=== PATIENT | female | born 1980 | race Caucasian/White ===

== ENCOUNTER 2017-05-16 15:39 | Observation (INO) | payer BC ==
[2017-05-16] MEDS ORDERED: Acetaminophen 325 MG Tab PO PRN (16:52)
[2017-05-16] MEDS ORDERED: Polyethylene Glycol 3350 Powder 17 GM Packet PO PRN (16:52)
[2017-05-16] MEDS ORDERED: Ondansetron 4 MG Tab.DIS PO PRN (16:52)
--- NOTE | 2017-05-16 17:14 | PCM.HP ---
H&P History of Present Illness - General Date of Service: 05/16/17 Admit Problem/Dx: Admission Diagnosis/Problem Admission Diagnosis/Problem Abdominal pain Source of Information: Patient, Family, Old Records History Limitations: Reports: No Limitations - History of Present Illness Initial Comments - Free Text/Narative: This patient is a 36-year-old female who presents to [facility] this afternoon with a two-week history of abdominal pain. The patient tells me she hasn't quite felt herself since December when she was treated with antibiotic therapy for pneumonia. She thinks she was treated with azithromycin and ciprofloxacin. Since about 2 weeks ago, she has had nausea and abdominal discomfort, cramping and just hasn't felt herself. She's not been having regular bowel movements and has been constipated. She's had no diarrhea. She has had no appetite. She finally had an episode of vomiting last night, no blood in it, it was just bile, and her said she needed to go in today. She did just get her menses today. She tells me she's had a lot of trouble with her bowels in the past because of all of a long-standing history of using narcotics for pain management. She weaned herself off the narcotic pain pill sometime in the last 24 months and has been off them for at least a year. She didn't like the side effects. She uses marijuana intermittently for pain management. Past medical history significant for: History of thyroid biopsy of a thyroid mass in the past which was negative. Possible hypertension which is untreated Possible prediabetes or diabetes which is untreated Acid reflux Bipolar disorder Myofascial pain syndrome Endometriosis for which the patient has been advised to have her uterus removed because of intermittent abdominal pain with this History of tonsillectomy at the age of 31 and adenoids and ear tubes placed as a child. She also had a second set of tubes placed. Tubal ligation in 2002 Left shoulder scoping with clavicular partial removal. Allergies: Dill causes her to have hives and Abilify gives her rash. Current medications: #1 melatonin #2 Midol for pain and cramping #3 Tums for heartburn #4 The patient's med list from also includes seasonale oral contraceptive which the patient stopped about 3 months ago because it didn't sit through bleeding completely, Flomax which she doesn't take, and Topamax which she thinks was prescribed for pain management but she doesn't take. Family history: The patient's mother and sister both have lupus. She has 3 sisters and 1 brother. They'll mental illness. She thinks her father had a heart attack at some point but is estranged from him. Social history: The patient is a nonsmoker, nondrinker, , with 2 children. She stays at home. She uses marijuana for pain control but no other illegal drugs. - Related Data Allergies/Adverse Reactions: Allergies Allergy/AdvReac Type Severity Reaction Status Date / Time aripiprazole [From Abilify] Allergy Hives Verified 05/16/17 17:09 Home Medications: Home Meds Ibuprofen 200 mg PO Q4HR PRN 05/16/17 [History] Melatonin 10 mg PO DAILY 05/16/17 [History] Social & Family History - Tobacco Use Smoking Status *Q: Former Smoker Used Tobacco, but Quit: Yes Month Tobacco Last Used: 07/31/2007 Second Hand Smoke Exposure: No - Caffeine Use Caffeine Use: Reports: None - Recreational Drug Use Recreational Drug Use: Yes Drug Use in Last 12 Months: Yes Recreational Drug Type: Reports: Marijuana/Hashish Recreational Drug Use Frequency: Daily H&P Review of Systems - Review of Systems: Review Of Systems: See Below General: Reports: No Symptoms, Decreased Appetite HEENT: Reports: No Symptoms, Sore Throat Pulmonary: Reports: No Symptoms Cardiovascular: Reports: No Symptoms, Chest Pain (with deep inspiration on the Left upper abd/left lower chest and back) Gastrointestinal: Reports: Abdominal Pain, Anorexia, Constipation, Decreased Appetite, Vomiting Genitourinary: Reports: No Symptoms Musculoskeletal: Reports: Other (chronic body aches) Skin: Reports: No Symptoms Psychiatric: Reports: Other (Bipolar which she takes nothing for.) Neurological: Reports: No Symptoms Hematologic/Lymphatic: Reports: No Symptoms Immunologic: Reports: No Symptoms, Food Allergy, Environmental Allergy Exam - Exam Exam: See Below - Vital Signs Vital Signs: Last Vital Signs Temp 36.7 C 05/16/17 15:45 Pulse 84 05/16/17 15:45 Resp 18 05/16/17 15:45 BP 133/91 H 05/16/17 15:45 Pulse Ox 97 05/16/17 15:45 Weight: 70.931 kg - Exam General: Alert, Oriented, Cooperative (Speech is slightly pressured, somewhat tangential.) HEENT: PERRLA, Conjunctiva Clear, Mucosa Moist & [place], Posterior Pharynx Clear Neck: Supple, Trachea Midline Lungs: Clear to Auscultation, Normal Respiratory Effort Cardiovascular: Regular Rate, Regular Rhythm, Normal S1, Normal S2 GI/Abdominal Exam: Normal Bowel Sounds, Soft, No Distention (diffusely tender but mostly in the epigastrium, right and left upper quadrants, some in the suprapubic region.) Back Exam: Normal Inspection Extremities: Normal Inspection, No Pedal Edema Skin: Warm, Dry, Intact Neuro Extensive - Mental Status: Alert, Oriented x3 Psychiatric: Alert, Normal Affect, Normal Mood - Patient Data Lab Results Last 24 hrs: Laboratory Results - last 24 hr 05/16/17 Range/Units 16:00 Urine Color Yellow (YELLOW) Urine Appearance Clear (CLEAR) Urine pH 5.0 (5.0-6.5) Ur Specific [place] 1.010 (1.010-1.025) Urine Protein Negative (NEGATIVE) mg/dL Urine Glucose (UA) Normal (NEGATIVE) mg/dL Urine Ketones 15 H (NEGATIVE) mg/dL Urine Occult Blood Negative (NEGATIVE) Urine Nitrite Negative (NEGATIVE) Urine Bilirubin Negative (NEGATIVE) Urine Urobilinogen Normal (NEGATIVE) mg/dL Ur Leukocyte Esterase Negative (NEGATIVE) Urine RBC 0-5 (0) Urine WBC 0-5 (0) Ur Squamous Epith Cells Occasional (NS,R,O) Urine Bacteria Rare H (NS) Carlos Results Last 24 hrs: Labs from show a white count slightly elevated at 12.3, platelets 404, hemoglobin 15.5. White count elevation with a lymphocytosis with absolute lymphocytes 4.4, normal neutrophils. Sodium 140, potassium 3.4, chloride 107, carbon dioxide 19, calcium 4.6 ionized , BUN 12, creatinine 0.80, glucose nonfasting 120, urinalysis showed highly concentrated urine with a few ketones and some protein spilling, many squamous epithelial cells, moderate bacteria, mucus present. Strep was negative, mono screen was negative, test was negative. *Q Meaningful Use (ADM) - VTE *Q VTE Criteria *Q: - Stroke *Q Stroke Criteria *Q: - AMI *Q AMI Criteria *Q: - Problem List (1) Abdominal pain SNOMED Code(s): 60075444 ICD Code: R10.9 - UNSPECIFIED ABDOMINAL PAIN Status: Acute Current Visit : Yes Problem Details: Patient's symptoms are somewhat nonspecific. My suspicion based on history and physical exam as this patient has endometriosis which was stimulated by her most recent cycle after having been on oral contraceptives. She probably just started ovulating again and that's why her pain was so severe. However I do think we should get a follow-up abdominal ultrasound to rule out gallbladder disease. I'm going to start her on a PPI for her history of acid reflux. She does appear a little volume depleted so we'll give her IV fluids. Toradol for pain. Labs repeated in am. I anticipate she'll likely be able to be discharged tomorrow. Qualifiers: Abdominal location: epigastric Qualified Code(s): R10.13 - Epigastric pain Problem List Initiated/Reviewed/Updated: Yes Orders Last 24hrs: Active Orders 24 hr Category Date Time Status Patient Status [ADT] Routine ADT 05/16/17 16:52 Active Ambulate [RC] PER UNIT ROUTINE Care 05/16/17 16:54 Active Intake and Output [RC] QSHIFT Care 05/16/17 16:54 Active Oxygen Therapy [RC] PRN Care 05/16/17 16:52 Active Up ad Deloris [RC] ASDIRECTED Care 05/16/17 16:52 Active VTE/DVT Education [RC] Per Unit Routine Care 05/16/17 16:52 Active Vital Signs [RC] Q4H Care 05/16/17 16:52 Active Nothing per Oral Now Diet [DIET] Diet 05/16/17 Dinner Active CBC WITH AUTO DIFF [HEME] AM Lab 05/17/17 05:11 Ordered COMPREHENSIVE METABOLIC PN,CMP [CHEM] AM Lab 05/17/17 05:11 Ordered Acetaminophen [Tylenol] Med 05/16/17 16:52 Active 650 mg PO Q4H PRN Ketorolac [Toradol] Med 05/16/17 16:52 Pending 30 mg IVPUSH Q6H PRN Ondansetron [Zofran ODT] Med 05/16/17 16:52 Ordered 4 mg PO Q6H PRN Polyethylene Glycol 3350 [MiraLAX] Med 05/16/17 16:52 Ordered 17 gm PO BEDTIME PRN Sequential Compression Device [OM.PC] Per Unit Routine Oth 05/16/17 16:54 Ordered Resuscitation Status Routine Resus Stat 05/16/17 16:52 Ordered Medication Orders Acetaminophen (Tylenol) 650 mg PO Q4H PRN PRN Reason: Pain (Mild 1-3)/fever Ketorolac Tromethamine (Toradol) 30 mg IVPUSH Q6H PRN PRN Reason: Pain (moderate 4-6) Ondansetron HCl (Zofran Odt) 4 mg PO Q6H PRN PRN Reason: nausea, able to take PO Polyethylene Glycol (Miralax) 17 gm PO BEDTIME PRN PRN Reason: Constipation Assessment/Plan Comment:: Discussed code status and patient is a full code.
[2017-05-16] MEDS ORDERED: FLU Vacc QS 2017-18 (36mos UP)/PF 60 MCG/0.5 ML Syringe IM ONE (17:45)
[2017-05-16] MEDS: Sodium Chloride 0.9% 1,000 ML IV SCH (17:55)
[2017-05-16] MEDS: Ketorolac 30 MG/ML SDV IVPUSH PRN (17:56)
[2017-05-16] MEDS: Pantoprazole 40 MG Vial IVPUSH SCH (18:04)
[2017-05-17] MEDS: Ketorolac 30 MG/ML SDV IVPUSH PRN ×2 (03:16→09:30)
[2017-05-17] MEDS: Sodium Chloride 0.9% 1,000 ML IV SCH (03:18)
[2017-05-17] MEDS: Pantoprazole 40 MG Vial IVPUSH SCH (06:08)
--- NOTE | 2017-05-17 11:15 | US ---
INDICATION: Abdominal pain, question gallstones. ULTRASOUND OF THE ABDOMEN/RIGHT UPPER QUADRANT/GALLBLADDER: Multiple ultrasonic images were obtained 05/17/[address] from 2016. The gallbladder appeared normal except for a few floating crystals of very tiny size, with no wall thickening, calculi, sludge, pericholecystic fluid, or positive ultrasonic Shen sign. The gallbladder measured 6.8 x 2.1 x 3 cm. The liver had a normal appearance. The aorta was not visualized due to intestinal gas. The common bile duct was normal in caliber at 4 mm. The right kidney was marginally visualized with some scarring suggested, but overall normal appearance, measuring 11.1 x 3.4 x 6.3 cm. No definite mass lesions or free fluid collections were identified. IMPRESSION: Except for a few crystals in the gallbladder, and very minimal scarring suggested at the right kidney, normal right upper quadrant/gallbladder ultrasound. Report was called to Michelle Rouse MD at 1055 hours. [facility]
--- NOTE | 2017-05-17 11:32 | PCM.DCSUM1 ---
Discharge Summary - Hospital Course Free Text/Narrative:: Date of admission: 05/16/2017 Date of discharge: 05/17/2017 Admission diagnosis: #1. Abdominal pain, unclear etiology. #2. Anxiety with depression, bipolar. Patient currently on no medication. Discharge diagnosis: 1. Abdominal pain, with essentially negative CT scan, negative ultrasound. Suspect pain is related to underlying endometriosis. Patient recently stopped oral contraceptives and I suspect she had an auditory cycle here which flared her endometrial pain. Recommend she see Dr. Schuster, PUBLIC SERVICE ADMINISTRATOR, [facility] and this appointment will be scheduled for her before she leaves. 2. Mental health issues with anxiety and depression and untreated bipolar. The patient had 1 panic attack to hospitalization which was treated with Vistaril. She'll be discharged home with this and if effective she can continue it. Did recommend she seek mental health professional services with a psychologist who can do cognitive behavioral therapy and biofeedback for her chronic pain management. She was given a referral. Consults: None Procedures: CT scan of the abdomen and pelvis, ultrasound of the gallbladder. Brief History: Patient is a 36-year-old female who over a month ago stopped her continuous oral contraceptives because she was having spotting. About 2 weeks ago she began to develop diffuse abdominal pain and cramping nausea which culminated in an episode of vomiting the night before presentation. Also hadn't been having regular BMs. The day of admission she presented to the clinic and was seen by Ivelisse Weinstein who did labs and a CT scan of the abdomen. The patient had a slightly elevated white count and there was some question of possible pancreatic fullness on CT scan. I was asked to admit the patient for further evaluation and rehydration. - Discharge Data Discharge Date: 05/17/17 Discharge Disposition: Home, Self-Care 01 Condition: Good - Discharge Diagnosis/Problem(s) (1) Abdominal pain SNOMED Code(s): 12853778 ICD Code: R10.9 - UNSPECIFIED ABDOMINAL PAIN Status: Acute Current Visit : Yes Problem Details: Suspect this is endometriosis flare after stopping OCPs. Recommend referral to PUBLIC SERVICE ADMINISTRATOR. I have suggested she see Dr. Angel in [place] as he is very good with patients. Appt will be scheduled. Qualifiers: Abdominal location: epigastric Qualified Code(s): R10.13 - Epigastric pain - Patient Summary/Data Hospital Course: At the time of admission, patient was started on IV fluids and kept nothing by mouth with ice chips only. The morning following admission, her pain was somewhat improved. She had gotten her period in the interim and was having heavy vaginal bleeding from this. She had an ultrasound done which showed no gallstones. Discussed likely diagnosis of endometriosis. Patient was quite anxious and tearful about the fact that she has chronic pain syndromes and endometriosis and has been unsuccessful in taking medications as they all have such severe side effects. Recommended working with alternative medications, cognitive behavioral therapy, biofeedback, acupuncture, etc. which are perhaps less likely to result in ongoing side effects from medication. Labs and recheck in the morning had all normalized. Also started her on Miralax for constipation with goal for regular, soft, daily BMs. Recommended she see OB/ FREIGHT BRAKEMAN for consideration of further endometrial treatment. She had been advised in the past to do this by prior PUBLIC SERVICE ADMINISTRATOR but had a poor trust relationship with that doctor so didn't feel comfortable proceeding. Physical exam at the time of discharge: Vital signs were stable. Head was atraumatic, normocephalic, pupils equally round and reactive to light. Neck supple. Lungs clear to auscultation, heart tones regular with normal rate and rhythm. No murmurs. Abdomen was soft, diffusely tender, nondistended. No Pedal edema. - Patient Instructions Diet: Heart Healthy Diet, Usual Diet as Tolerated, Low Sodium, No Alcoholic Beverages Activity: As Tolerated - Discharge Plan Prescriptions/Med Rec: hydrOXYzine Pamoate [Vistaril] 50 mg PO Q6H PRN 3 Days #10 cap PRN Reason: Anxiety Polyethylene Glycol 3350 [MiraLAX] 17 gm PO BEDTIME PRN #1 bottle PRN Reason: Constipation Home Medications: Home Meds Melatonin 10 mg PO DAILY 05/16/17 [History] Melatonin 10 mg PO BEDTIME tablet 05/17/17 [Rx] Polyethylene Glycol 3350 [MiraLAX] 17 gm PO BEDTIME PRN #1 bottle 05/17/17 [Rx] hydrOXYzine Pamoate [Vistaril] 50 mg PO Q6H PRN 3 Days #10 cap 05/17/17 [Rx] - Patient Data Vitals - Most Recent: Last Vital Signs Temp 36.9 C 05/17/17 07:20 Pulse 79 05/17/17 07:20 Resp 18 05/17/17 07:20 BP 100/65 05/17/17 07:20 Pulse Ox 99 05/17/17 07:20 Weight - Most Recent: 70.931 kg I&O - Last 24 hours: Intake & Output 05/16/17 05/17/17 05/17/17 22:59 06:59 14:59 Intake Total 400 840 Output Total 350 100 150 Balance 50 740 -150 Lab Results - Last 24 hrs: Laboratory Results - last 24 hr 05/16/17 05/17/17 05/17/17 Range/Units 16:00 06:05 06:05 WBC 10.6 (4.5-12.0) X10-3/uL RBC 4.46 (3.23-5.20) x10(6)uL Hgb 13.0 (11.5-15.5) g/dL Hct 37.7 (30.0-51.3) % MCV 84.6 (80-96) fL MCH 29.1 (27.7-33.6) pg MCHC 34.4 (32.2-35.4) g/dL RDW 12.1 (11.5-15.5) % Plt Count 300 (125-369) X10(3)uL MPV 8.5 (7.4-10.4) fL Neut % (Auto) 57.4 (46-82) % Lymph % (Auto) 34.1 (13-37) % [place] % (Auto) 6.2 (4-12) % Eos % (Auto) 2 (1.0-5.0) % Baso % (Auto) 0 (0-2) % Neut # (Auto) 6.1 (1.6-8.3) # Lymph # (Auto) 3.6 (0.6-5.0) # [place] # (Auto) 0.7 (0.0-1.3) # Eos # (Auto) 0.2 (0.0-0.8) # Baso # (Auto) 0.0 (0.0-0.2) # Sodium 139 (135-145) mmol/L Potassium 3.8 (3.5-5.3) mmol/L Chloride 108 (100-110) mmol/L Carbon Dioxide 23 (23-29) mmol/L BUN 10 (5-20) mg/dL Creatinine 0.7 (0.6-1.3) mg/dL Est Cr Clr Drug Dosing 81.82 mL/min Estimated GFR (MDRD) > 60 (>60) BUN/Creatinine Ratio 14.3 (9-20) Glucose 90 (80-116) mg/dL Calcium 8.8 (8.6-10.2) mg/dL Total Bilirubin 0.6 (0.1-1.3) mg/dL AST 11 (5-27) IU/L ALT 10 L (14-26) IU/L Alkaline Phosphatase 58 (56-112) IU/L Total Protein 6.8 (6.0-8.0) g/dL Albumin 4.0 (3.5-5.2) g/dL Globulin 2.8 g/dL Albumin/Globulin Ratio 1.4 Urine Color Yellow (YELLOW) Urine Appearance Clear (CLEAR) Urine pH 5.0 (5.0-6.5) Ur Specific [place] 1.010 (1.010-1.025) Urine Protein Negative (NEGATIVE) mg/dL Urine Glucose (UA) Normal (NEGATIVE) mg/dL Urine Ketones 15 H (NEGATIVE) mg/dL Urine Occult Blood Negative (NEGATIVE) Urine Nitrite Negative (NEGATIVE) Urine Bilirubin Negative (NEGATIVE) Urine Urobilinogen Normal (NEGATIVE) mg/dL Ur Leukocyte Esterase Negative (NEGATIVE) Urine RBC 0-5 (0) Urine WBC 0-5 (0) Ur Squamous Epith Cells Occasional (NS,R,O) Urine Bacteria Rare H (NS) Med Orders - Current: Current Medications Acetaminophen (Tylenol) 650 mg PO Q4H PRN PRN Reason: Pain (Mild 1-3)/fever Hydroxyzine Pamoate (Vistaril) 50 mg PO Q6H PRN PRN Reason: Anxiety Last Admin: 05/17/17 10:54 Dose: 50 mg Sodium Chloride (Normal Saline) 1,000 mls @ 100 mls/hr IV ASDIRECTED PAULETTE Last Admin: 05/17/17 03:18 Dose: 100 mls/hr Ketorolac Tromethamine (Toradol) 30 mg IVPUSH Q6H PRN PRN Reason: Pain (moderate 4-6) Last Admin: 05/17/17 09:30 Dose: 30 mg Melatonin (Melatonin) 10 mg PO BEDTIME PAULETTE Ondansetron HCl (Zofran Odt) 4 mg PO Q6H PRN PRN Reason: nausea, able to take PO Last Admin: 05/16/17 19:42 Dose: 4 mg Pantoprazole Sodium (Protonix Iv) 40 mg IVPUSH Q12H PAULETTE Last Admin: 05/17/17 06:08 Dose: 40 mg Polyethylene Glycol (Miralax) 17 gm PO BEDTIME PRN PRN Reason: Constipation Discontinued Medications Influenza Virus Vaccine (Pharmacy To Dose - Influenza Vaccine) 1 each IM ONETIME ONE Stop: 05/16/17 17:26 Influenza Virus Vaccine (Fluzone Quad [id number]) 60 mcg IM .ONCE ONE Stop: 05/16/17 17:46 Melatonin (Melatonin) 10 mg PO ONETIME ONE Stop: 05/16/17 22:31 Last Admin: 05/16/17 22:35 Dose: 10 mg *Q Meaningful Use (DIS) - VTE *Q VTE Criteria *Q: - Stroke *Q Stroke Criteria *Q: - AMI *Q AMI Criteria *Q:
== END 2017-05-17 12:40 | disposition home or self-care (01) ==
LOC: FB.MS 15:39
PROVIDERS: ADMIT Family Medicine; ATTEND Family Medicine
DX: R10.13 Epigastric pain (principal); F41.8 Other specified anxiety disorders; Z79.899 Other long term (current) drug therapy; Z88.8 Allergy status to other drugs, medicaments and biological substances
CPT/HCPCS: 36415; 76700; 80053; 81001; 85025; 96361; 96374; 96375; 96376; A9270; C9113; G0008; G0378; G0379; J1885; J7040; 90686; 99217; 99219